=== PATIENT | female | born 1980 | race Caucasian/White ===

== ENCOUNTER → 2022-11-29 08:00 | Outpatient (BNV) | payer MEDICARE, MEDICAID, SELFPAY | PROVIDERS: Visit Provider Psychiatry & Neurology Psychiatry | DX: F90.9 Attention-deficit hyperactivity disorder, unspecified type (principal); F43.10 Post-traumatic stress disorder, unspecified | CPT/HCPCS: 99202; 99213; 99214 ==

== ENCOUNTER 2022-12-05 10:31 | Emergency (ER) | payer MEDICARE, MEDICAID, SELFPAY ==
--- NOTE | ~2022-12-05 | CT_ITS ---
EXAMINATION: CT CERVICAL SPINE WITHOUT CONTRAST CLINICAL INFORMATION: Status post fall with neck pain. COMPARISON: None available. TECHNIQUE: Multiple axial images of the cervical spine were obtained without the administration of intravenous contrast. Coronal and sagittal reformatted images were obtained. This CT examination was performed using dose optimization techniques as appropriate, variously including the following: *Automated exposure control *Adjustment of mA and/or kV according to patient size (this includes techniques or standardized protocols for targeted exams where dose is matched to indication/reason for exam; i.e. extremities or head) *Use of iterative reconstruction technique DLP: 304.32 mGy-cm FINDINGS: There is straightening of the normal cervical lordosis with normal spinal alignment. The vertebral bodies are intact. The odontoid process is intact with mild articulation degenerative changes. The neural foramina are patent. The facet joints are unremarkable. The spinous and transverse processes are intact. The cervical soft tissues are unremarkable. There is no lymphadenopathy. The visualized thyroid gland and lung apices are unremarkable. CT/CT cervical spine wo IV con IMPRESSION: Straightening of the normal cervical lordosis may be secondary to positioning and/or muscle spasm. No acute abnormality.
--- NOTE | ~2022-12-05 | CT_ITS ---
EXAMINATION: CT HEAD WITHOUT CONTRAST CLINICAL INFORMATION: Head strike and headache, rule out intracranial abnormality. COMPARISON: None available. TECHNIQUE: Contiguous axial imaging was performed from the skull base to vertex without intravenous administration of contrast. Coronal and sagittal reformatted images were obtained. This CT examination was performed using dose optimization techniques as appropriate, variously including the following: *Automated exposure control *Adjustment of mA and/or kV according to patient size (this includes techniques or standardized protocols for targeted exams where dose is matched to indication/reason for exam; i.e. extremities or head) *Use of iterative reconstruction technique DLP: 873 mGy-cm FINDINGS: The cortical sulci are normal. The lateral ventricles are symmetrical. The third and fourth ventricles are in their normal midline position. The basilar and prepontine cisterns are unremarkable. There is no acute intra or extracerebral abnormality. There is no mass effect or midline shift. Sections through the bony calvarium are unremarkable. The paranasal sinuses are clear. The bony orbits and orbital contents are unremarkable. CT/CT head/brain wo IV con IMPRESSION: No acute intracranial pathology.
[2022-12-05 10:52] VITALS: BP 134/65; PULSE 63; RESP 16; TEMP 36.7; O2SAT 98; BMI 25.3
--- NOTE | 2022-12-05 14:15 | ED_ITS ---
HPI - Head Injury General Chief complaint: Head Injury Stated complaint: head inj headache Time Seen by Provider: 12/05/22 14:02 Source: patient and RN notes reviewed Mode of arrival: ambulatory Limitations: no limitations History of Present Illness HPI Narrative: This is a 42-year-old female, with a past medical history of PTSD, ADHD, and asthma, presenting to the emergency department with complaints of ongoing headache x5 days. Patient states that she has a history of PTSD and states that as a child she uses a hit her head against a wall. She states that she had 1 of these episodes were she hit her head multiple times against a wall. She has is unsure whether not she lost consciousness at that time. She states that 2 days later she accidentally hit the top of her head and forehead on a metal shelf. No loss of consciousness. She states that she has had intermittent headaches, dizziness, lightheadedness, and nausea. She states that she took naproxen for her symptoms yesterday which did not provide her with any relief. She has a history of migraines but states that her headache is different, describing it as a tight band around her head. She also endorses some neck pain. She denies any fevers, chills, vision changes, numbness tingling or weakness, chest pain, shortness of breath, abdominal pain, vomiting or diarrhea. She is not on blood thinners. No other complaints or concerns at this time. Complaint: head injury Onset (ago): day(s) Place: home Loss of Consciousness: unsure Location of injury: frontal Quality: aching Radiation: neck Other Injuries: none Associated symptoms: neck pain Related Data Home Medications Medication Instructions Recorded Confirmed cholecalciferol (vitamin D3) 25 25 mcg PO DAILY 11/28/22 11/28/22 mcg (1,000 unit) capsule (Vitamin D3) cyanocobalamin (vitamin B-12) 1,000 mcg PO DAILY 11/28/22 11/28/22 1,000 mcg tablet (Vitamin B-12) estradiol 1 mg tablet 1 mg PO DAILY 11/28/22 11/28/22 levocetirizine 5 mg tablet (Xyzal) 5 mg PO DAILY 11/28/22 11/28/22 naproxen sodium 220 mg capsule 220 mg PO DAILY PRN Pain 11/28/22 11/28/22 (Aleve) omeprazole 20 mg capsule,delayed 20 mg PO BID 11/28/22 11/28/22 release oxybutynin chloride 5 mg 5 mg PO DAILY 11/28/22 11/28/22 tablet,extended release 24 hr rizatriptan 10 mg tablet 10 mg PO DAILY PRN Migraine 11/28/22 11/28/22 Headache Previous Rx's Medication Instructions Recorded alprazolam 0.5 mg tablet (Xanax) 0.5 mg PO DAILY PRN anxiety 30 11/29/22 days #10 tabs dextroamphetamine-amphetamine 10 10 mg PO BID ADHD 15 days #30 tabs 11/29/22 mg tablet (Adderall) lorazepam 0.5 mg tablet (Ativan) 0.5 mg PO DAILY PRN anxiety 20 11/29/22 days #10 tabs citalopram 20 mg tablet (Celexa) 20 mg PO DAILY #30 tabs 12/02/22 Allergies Allergy/AdvReac Type Severity Reaction Status Date / Time Penicillins [PENICILLINS] Allergy Unknown UNKNOWN Unverified 01/09/20 18:16 bupropion [From Wellbutrin] AdvReac Suicidality Verified 11/28/22 15:00 citalopram AdvReac Suicidality Verified 11/28/22 15:00 Review of Systems Review of Systems: Yes all other systems are reviewed and are negative Constitutional: Constitutional: Reports as per [facility] Past Medical History Medical History Arthritis Asthma Bradycardia Chronic fatigue Endometriosis Fibromyalgia GERD (gastroesophageal reflux disease) History of bronchitis History of pneumonia History of stomach ulcers IBS (irritable bowel syndrome) Migraines Polyarthralgia Positive CATERINA (antinuclear antibody) Spinal stenosis Vitamin D deficiency Surgical History History of carpal tunnel surgery History of hysterectomy Social History Social History Household Members: Significant Other, Children and Other Household Members Other:: Zeke Maki boyfriend, 4 children, and boyfriend's mother. Patient Tobacco Use Status: Former Tobacco user Advance Directives: No Advance Directives Information Provided: No Physical Exam Vital Signs: Vital Signs: Last Vital Signs Temp 98.1 F 12/05/22 10:52 Pulse 63 12/05/22 10:52 Resp 16 12/05/22 10:52 BP 134/65 12/05/22 10:52 Pulse Ox 98 12/05/22 10:52 O2 Del Method Room Air 12/05/22 10:52 BMI result Body Mass Index 25.3 Const: General: cooperative, comfortable and no acute distress Orientation/consciousness: patient oriented x3 Limitations: no limitations HEENT: Other: Mid forehead with superficial abrasion with mild edema and tenderness palpation. No step-off or crepitus. No hemotympanum Head: Yes normal to inspection, Yes normocephalic, No Palomares's sign, No palpable skull fracture, No scalp lesion and No scalp tenderness Ears: hearing grossly normal bilaterally and TM's normal bilaterally General nose e xam: Normal external nose present Face and sinus: Yes normal facial exam Mouth: Normal oral and palatal mucosa present, oropharynx normal and moist mucous membranes Throat: Yes posterior oropharynx normal Eyes: General: appearance normal, both eyes and all related structures Eyelids: Yes eyelids normal Conjunctivae: conjunctivae normal Sclerae: sclerae normal Pupils: Equal, round and reactive pupils present EOM: EOMs intact bilaterally and No Nystagmus present Neck: Neck: Yes normal visual inspection, Yes full ROM and Yes no lymphadenopathy Lymphatic: no lymphadenopathy noted Chest: Chest palpation & inspection: normal inspection of the chest Resp: Effort & Inspection: normal respiratory effort and able to speak in comp lete sentences Auscultation: clear to auscultation bilaterally, no crackles, no rales, no rhonchi and no wheezes Cardio: Rate: regular rate Rhythm: regular rhythm Heart sounds: S1 normal heart sound present and S2 normal heart sound present GI: Inspection: Yes normal to inspection Skin: General skin exam: no rashes or lesions noted Trauma: no lacerations or abrasions Wounds: no wounds Neuro: General: patient oriented x3 and moves all extremities Cranial nerves: Yes CN's II-XII intact bilaterally, Yes Equal, round and reactive pupils present, Yes Nystagmus not present, Yes Normal facial strength present, Yes Midline tongue present, Yes Ability to bilaterally elevate shoulders present and No Nystagmus present Romberg Test: Negative Extrem: General: Yes normal to inspection Right upper extremity: normal to inspection Left upper extremity: normal to inspection Right lower extremity: normal to inspection Left lower extremity: normal to inspection Course Reevaluation(s) Reevaluation #1: CT head and neck are unremarkable. Symptoms consistent with closed head injury, discharged with closed head injury discharge instructions. Patient is neurologically intact with no focal findings. Given strict return precautions. Patient understands and agrees with plan. Patient stable for discharge. Medical Decision Making Medical Decision Making MDM Narrative: 42-year-old female presenting to the emergency department for evaluation of head injury x5 days. She states that 5 days ago she struck her head multiple times against a wall after having a PTSD attack , unsure of LOC. She then struck the front of her head on a metal shelf. She has had this persistent headaches, dizziness and nausea since these incidences. She is not on blood thinners. Patient is neurologically intact. Vital signs stable. Given head trauma this is does, and 3 days ago and patient's mom blood thinners without any neurologic findings, ICH is highly unlikely. Given persistent headaches that are atypical of her migraines, will obtain head and neck CT. Patient has mild tenderness palpation along the cervical midline spine tenderness which exacerbates headache even further. Plan: CT head and neck Differential Diagnosis Differential Diagnoses: The differential diagnosis associated with the presentation includes ICH-unlikely, migraine headache, tension headache, ocular migraine Admission/Observation Consideration of admission/observation: Escalation of care including admission/observation considered Patient would have been admitted to the hospital had her work up had any findings where hospital admission was appropriate and her clinical presentation warranted hospital admission. Lab Data MDM Lab Attestation statement: I reviewed the patient's lab results. Radiology Impression Discussion of test interpretation with radiology: I have reviewed the radiologist's reading. Radiologist Impression: EXAMINATION: CT HEAD WITHOUT CONTRAST CLINICAL INFORMATION: Head strike and headache, rule out intracranial abnormality.? COMPARISON: None available. TECHNIQUE: Contiguous axial imaging was performed from the skull base to vertex without intravenous administration of contrast. Coronal and sagittal reformatted images were obtained. This CT examination was performed using dose optimization techniques as appropriate, variously including the following: *Automated exposure control *Adjustment of mA and/or kV according to patient size (this includes techniques or standardized protocols for targeted exams where dose is matched to indication/reason for exam; i.e. extremities or head) *Use of iterative reconstruction technique DLP: 873 mGy-cm FINDINGS: The cortical sulci are normal. The lateral ventricles are symmetrical. The third and fourth ventricles are in their normal midline position. The basilar and prepontine cisterns are unremarkable. There is no acute intra or extracerebral abnormality. There is no mass effect or midline shift. Sections through the bony calvarium are unremarkable. The paranasal sinuses are clear. The bony orbits and orbital contents are unremarkable. ? CT/CT head/brain wo IV con IMPRESSION: No acute intracranial pathology. Dictated By: Jose Naranjo MD EXAMINATION: CT CERVICAL SPINE WITHOUT CONTRAST CLINICAL INFORMATION: Status post fall with neck pain.? COMPARISON: None available. TECHNIQUE: Multiple axial images of the cervical spine were obtained without the administration of intravenous contrast. Coronal and sagittal reformatted images were obtained.? This CT examination was performed using dose optimization techniques as appropriate, variously including the following: *Automated exposure control *Adjustment of mA and/or kV according to patient size (this includes techniques or standardized protocols for targeted exams where dose is matched to indication/reason for exam; i.e. extremities or head) *Use of iterative reconstruction technique DLP: 304.32 mGy-cm FINDINGS: There is straightening of the normal cervical lordosis with normal spinal alignment. The vertebral bodies are intact. The odontoid process is intact with mild? articulation degenerative changes. The neural foramina are patent. The facet joints are unremarkable. The spinous and transverse processes are intact. The cervical soft tissues are unremarkable. There is no lymphadenopathy. The visualized thyroid gland and lung apices are unremarkable. CT/CT cervical spine wo IV con IMPRESSION: Straightening of the normal cervical lordosis may be secondary to positioning and/or muscle spasm. No acute abnormality. ? Dictated By: Jose Naranjo MD Discharge Plan Discharge Clinical Impression: Closed head injury Patient Disposition: Home, Self-Care Additional Instructions: Your head and neck scan were unremarkable today. Please drink plenty of fluids and get plenty of rest Avoid prolonged screentime as this can worsen your symptoms. Take Tylenol or ibuprofen as needed for pain. If any new or worsening symptoms occur please return for re-evaluation. Prescriptions: No Action rizatriptan 10 mg Tablet 10 mg PO DAILY PRN (Reason: Migraine Headache) Patient Comments: Patient stated she has not started. New medication. Was taking Sumatriptan without effect. Rx Instructions: do not exceed 3 doses per 24 hrs estradiol 1 mg tablet 1 mg PO DAILY oxybutynin chloride 5 mg tablet extended release 24hr 5 mg PO DAILY omeprazole 20 mg capsule,delayed release(DR/EC) 20 mg PO BID cholecalciferol (vitamin D3) [Vitamin D3] 25 mcg (1,000 unit) Capsule 25 mcg PO DAILY cyanocobalamin (vitamin B-12) [Vitamin B-12] 1,000 mcg Tablet 1,000 mcg PO DAILY levocetirizine [Xyzal] 5 mg Tablet 5 mg PO DAILY naproxen sodium [Aleve] 220 mg Capsule 220 mg PO DAILY PRN (Reason: Pain) dextroamphetamine-amphetamine [Adderall] 10 mg tablet 10 mg PO BID 15 Days Qty: 30 0RF Rx Instructions: administer doses at least 4-6 hours apart; Partial Fill upon patient request. lorazepam [Ativan] 0.5 mg tablet 0.5 mg PO DAILY PRN (Reason: anxiety) 20 Days Qty: 10 0RF alprazolam [Xanax] 0.5 mg tablet 0.5 mg PO DAILY PRN (Reason: anxiety) 30 Days Qty: 10 0RF citalopram [Celexa] 20 mg tablet 20 mg PO DAILY Qty: 30 0RF Interventions: ED Discharge Assessment Last Done: 12/05/22 16:34 Discharge Date/Time: 12/05/22 16:34
== END 2022-12-05 16:34 | disposition home or self-care (01) ==
PROVIDERS: Emergency Provider Emergency Medicine; PCP Pediatrics
DX: S09.90XA Unspecified injury of head, initial encounter (principal); W22.8XXA Striking against or struck by other objects, initial encounter; M54.2 Cervicalgia; Y93.9 Activity, unspecified; Y92.9 Unspecified place or not applicable; Y99.9 Unspecified external cause status
CPT/HCPCS: 70450; 72125; 99282; 99284

== ENCOUNTER 2022-12-14 09:15 | Outpatient (RCR) | payer MEDICARE, MEDICAID, SELFPAY ==
[2022-11-28 13:29] VITALS: BP 105/72; PULSE 58; TEMP 36.6
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
--- NOTE | 2022-11-29 14:13 | PC.NURSE ---
Carlos stated [facility] notified her there is an issue with her prescription. I called [facility] to f/u and was told they are not able to fill Lorazepam prescription as the medication is on back order d/t a national shortage and are unsure when it will be available. Dr Westfall is aware.
--- NOTE | 2022-12-01 17:18 | HO.PHP ---
Clients case was reviewed and opened today in treatment team.
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
--- NOTE | 2022-12-02 12:50 | HO.PHP ---
[facility] staff met with Karen, in which we contacted [facility] about [place] treatment. The treatment center informed us that they only prescribe medication for Sprav[place] and don't do other psychiatric medication. Karen did not move forward with placing a referral since they did not do additional medication. Once we disconnected, [facility] staff looked up other information around [place] centers and med management. [facility] staff reached out to [facility] in [place] and Karen spoke with a staff member who placed a referral for her. Karen explored how long before she is seen. The individual from [facility] said she does not have a timeline she can provide but someone will call with the appointment as soon as one becomes available. Karen was receptive.
--- NOTE | 2022-12-06 09:59 | PC.NURSE ---
Karen left the first group crying. She came into my office to talk. She stated she had a difficult morning this morning as her boyfriend started work and she had to manage her mother in law and get herself ready for program this morning. She also stated she received a call from [facility] about an appointment at 3:15 today and she is unable to make the appointment. She stated she does not trust [facility] as in the past she left them a message regarding an appointment and they did not call her back. She stated the system is broken. She stated she did call [facility] back and left a message wanting to reschedule the appointment as she has a DBT appointment today at 4:00. She stated [facility] has not called her back. She understands that it is difficult to get a new prescriber appointment. She also stated she is on a wait list with another prescriber in [place]. She was working with [facility] staff Marlen. [facility] staff Brdig[place] and Mayela are aware.
--- NOTE | 2022-12-08 11:12 | HO.PHPPROGNO ---
Subjective Subjective Date of Service: 12/08/22 Reason For Visit: PTSD,MDD Healthcare Proxy: No Guardianship: No Medical Problems Affecting Mental Status: Yes (chronic pain, fibromyalgia, bruxism) Interim History: Margie requested to see me today in a follow-up. She has been taking the stimulant and it has been extremely helpful with her ADHD symptoms but is causing worsening of her jaw clenching. She is able to complete tasks. Mind racing has decreased considerably and noticeably. Pt says her anxiety and agitation have increased with restarting the celexa.pt states her outpatient prescriber willnot prescribe meds fro her until she gets records from us. I assured her that we would send her outpatient provider a treatment summary and a list of any med changes. pt would like to try ritalin to see if it causes less jaw clenching. she wants to stop the celexa. we discussed other options and she requests to try gabapentin which she thinks could help with her anxiety but also the fibromyalgia pain; we discussed risk vs benefits, potential improvements with and limits of gabapentin. I also suggested se try buspirone for bruxism. Medication Compliance: Yes Side effects from medications: Yes Attending Groups: Yes Review of Systems Acute medical concerns: Yes Medical Review of Systems: unchanged Review of Systems Review of Systems Yes all other systems are reviewed and are negative Reports mouth pain (jaw pain from clenching) Musculoskeletal: Reports as per HPI and Reports myalgias Mental Status Exam Mental Status Exam Narrative: In today's visit she is alert, oriented and pleasant. Normal speech. Good eye contact. Appropriate affect. No signs of psychosis. No SI/HI. Cognitively intact. Judgment is intact abnormalities of gait or musculoskeletal difficulties Assessment & Plan Assessment & Plan (1) ADHD: Status: Acute Code(s): F90.9 - Attention-deficit hyperactivity disorder, unspecified type (2) PTSD (post-traumatic stress disorder): Status: Acute Code(s): F43.10 - Post-traumatic stress disorder, unspecified Plan Continue partial hospital program. D/C Adderall D/C Celexa 10-20 mg start gabapentin 100mg TId start ritalin 10 mg BId take 3.5 hours apart start buspar 5 mg BID on evening of 12/13 for jaw clenching Patient educated on: diagnosis, medication risk/benefits and therapeutic strategies Informed Consent: understands and further education needed Reason for contiued partial hosp. stay Substantial Risk for: harm to self, inability to function and rapid decompensation Certification I certify that partial hospital treatment is medically necessary due to the symptoms and problems resulting from the patient's mental illness and the failure to treat the patient at the partial hospital level of care would likely result in the patient requiring inpatient psychiatric care which could not be prevented at a less intensive level of care. Total time managing care of this patient today _30___ minutes. Discharge Plan Discharge Attending provider: Montrell Aponte Medications: New lorazepam [Ativan] 0.5 mg tablet 0.5 mg PO DAILY PRN (Reason: anxiety) 20 Days Qty: 10 0RF alprazolam [Xanax] 0.5 mg tablet 0.5 mg PO DAILY PRN (Reason: anxiety) 30 Days Qty: 10 0RF methylphenidate HCl [Ritalin] 10 mg tablet 10 mg PO BID Qty: 20 0RF Rx Instructions: Partial Fill upon patient request. gabapentin 100 mg capsule 100 mg PO TID Qty: 30 0RF buspirone 5 mg tablet 5 mg PO BID Qty: 10 0RF Rx Instructions: start on 8 PM No Action rizatriptan 10 mg Tablet 10 mg PO DAILY PRN (Reason: Migraine Headache) Patient Comments: Patient stated she has not started. New medication. Was taking Sumatriptan without effect. Rx Instructions: do not exceed 3 doses per 24 hrs estradiol 1 mg tablet 1 mg PO DAILY oxybutynin chloride 5 mg tablet extended release 24hr 5 mg PO DAILY omeprazole 20 mg capsule,delayed release(DR/EC) 20 mg PO BID cholecalciferol (vitamin D3) [Vitamin D3] 25 mcg (1,000 unit) Capsule 25 mcg PO DAILY cyanocobalamin (vitamin B-12) [Vitamin B-12] 1,000 mcg Tablet 1,000 mcg PO DAILY levocetirizine [Xyzal] 5 mg Tablet 5 mg PO DAILY naproxen sodium [Aleve] 220 mg Capsule 220 mg PO DAILY PRN (Reason: Pain) Stand Alone Forms: Patient Portal Discharge page
--- NOTE | 2022-12-12 10:09 | HO.PHP ---
[facility] staff received a message regarding setting up an appointment for psychiatry through [facility] and was asked to contact back to set up an appointment date and time. [facility] staff contacted [facility] and left a message. The number contacted was [phone] ext [phone]. [facility] staff is awaiting a returned phone call.
--- NOTE | 2022-12-13 09:30 | HO.PHP ---
[facility] staff contacted [facility] at [phone] ext [phone] and left a VM regarding scheduling an appointment time for Karen to meet with a med provider. [facility] staff is awaiting a call back.
--- NOTE | 2022-12-13 15:00 | HO.PHP ---
[facility] staff received a VM from [facility] asking for the clinician to contact back. [facility] staff returned the phone call but was presented with the VM box. [facility] staff left a VM and informed them that they can call back with the appointment date and time and leave the information in the VM if we are unable to connect. [facility] staff is awaiting the appointment date and time.
--- NOTE | 2022-12-14 12:57 | P.PNPSP_ITS ---
Subjective Subjective Date of Service: 12/14/22 Reason For Visit: PTSD,MDD Healthcare Proxy: No Guardianship: No Medical Problems Affecting Mental Status: No Interim History: Met with patient. Chart reviewed. Patient be discharged today. Overall reports partial hospital program has been helpful with significant improvement in sleep, less depressed and motivation much better. Still remains depressed however. No SI. No psychosis. No agitation. Feels that the Ritalin has been helpful at 10 mg 3 times per day. Reports that does tend to wear off pretty quickly. We discussed utilizing Ritalin long-acting 20 mg in the morning and 10 mg immediate release in the afternoon. Patient will follow up with community- based prescriber regarding other medications. We will send prescriptions for 14 days for Ritalin long-acting and immediate release so same is on discharge paperwork and feels as per [place] [facility], so community provider but have relevant information to continue same. Cardiovascular Disease Specialist unable to electronically prescribed stimulant medications through [facility], and therefore paper prescriptions printed to [facility] as this provider is working remotely. Medication Compliance: Yes Side effects from medications: No Attending Groups: Yes Review of Systems Acute medical concerns: No Review of Systems Review of Systems Yes all other systems are reviewed and are negative Mental Status Exam Mental Status Exam Narrative: Pleasant. Engaged. Fairly presented. Organized. Affect is restricted. No SI. No HI. No agitation. No psychosis. Insight judgment fair Assessment & Plan Assessment & Plan (1) ADHD: Status: Acute Code(s): F90.9 - Attention-deficit hyperactivity disorder, unspecified type Assessment and Plan: overall has been appropriate from a mood perspective. Some benefit from stimulants regimen being started for ADHD and motivation. Feels that the Ritalin has been helpful at 10 mg 3 times per day. Reports that does tend to wear off pretty quickly. We discussed utilizing Ritalin long-acting 20 mg in the morning and 10 mg immediate release in the afternoon. Patient will follow up with community-based prescriber regarding other medications. We will send prescriptions for 14 days for Ritalin long-acting and immediate release so same is on discharge paperwork and feels as per [place] [facility], so community provider but have relevant information to continue same. Cardiovascular Disease Specialist unable to electronically prescribed stimulant medications through [facility], and therefore paper prescriptions printed to [facility] as this provider is working remotely. (2) PTSD (post-traumatic stress disorder): Status: Acute Code(s): F43.10 - Post-traumatic stress disorder, unspecified Patient educated on: medication risk/benefits and therapeutic strategies Informed Consent: understands Reason for contiued partial hosp. stay Substantial Risk for: stable for discharge Certification I certify that partial hospital treatment is medically necessary due to the symptoms and problems resulting from the patient's mental illness and the failure to treat the patient at the partial hospital level of care would likely result in the patient requiring inpatient psychiatric care which could not be prevented at a less intensive level of care. Total time managing care of this patient today __30__ minutes. Discharge Plan Discharge Attending provider: Montrell Aponte Medications: New lorazepam [Ativan] 0.5 mg tablet 0.5 mg PO DAILY PRN (Reason: anxiety) 20 Days Qty: 10 0RF alprazolam [Xanax] 0.5 mg tablet 0.5 mg PO DAILY PRN (Reason: anxiety) 30 Days Qty: 10 0RF gabapentin 100 mg capsule 100 mg PO TID Qty: 30 0RF buspirone 5 mg tablet 5 mg PO BID Qty: 10 0RF Rx Instructions: start on 8/22 PM methylphenidate HCl [Ritalin LA] 20 mg capsule,ER biphasic 50-50 20 mg PO DAILY 14 Days Qty: 14 0RF Rx Instructions: Partial Fill upon patient request. Changed methylphenidate HCl [Ritalin] 10 mg tablet 10 mg PO DAILY@1500 Qty: 14 0RF Rx Instructions: Partial Fill upon patient request. No Action rizatriptan 10 mg Tablet 10 mg PO DAILY PRN (Reason: Migraine Headache) Patient Comments: Patient stated she has not started. New medication. Was taking Sumatriptan without effect. Rx Instructions: do not exceed 3 doses per 24 hrs estradiol 1 mg tablet 1 mg PO DAILY oxybutynin chloride 5 mg tablet extended release 24hr 5 mg PO DAILY omeprazole 20 mg capsule,delayed release(DR/EC) 20 mg PO BID cholecalciferol (vitamin D3) [Vitamin D3] 25 mcg (1,000 unit) Capsule 25 mcg PO DAILY cyanocobalamin (vitamin B-12) [Vitamin B-12] 1,000 mcg Tablet 1,000 mcg PO DAILY levocetirizine [Xyzal] 5 mg Tablet 5 mg PO DAILY naproxen sodium [Aleve] 220 mg Capsule 220 mg PO DAILY PRN (Reason: Pain) Stand Alone Forms: Patient Portal Discharge page Patient Education: Depression (DC) Telehealth Telehealth Location of provider rendering services: other ( [place]) Location of patient: other ( [facility]) Patient Identification confirmed using: Name, : Yes Telehealth method: video Patient verbally consented to treatment: Yes Minutes spent on Phone/Video with Pt.: 15
--- NOTE | 2022-12-20 12:28 | PC.NURSE ---
At discharge from the program Karen saw Dr Johns requesting Methylphenidate refill however the refill did not go through to [facility]. Methylphenidate refill was filled by Carmen Cuellar APRN on 12/15/22. Karen had an appointment with [facility] prescriber the next day and told staff she did not need any other medication refills. Karen called today and stated [facility] did not fill her meds including Gabapentin and Buspirone as it was not on her D/C paperwork. I let her know we sent a copy of her discharge paperwork with faxed confirmation of receipt and both Gapapentin and Buspirone were listed on the paperwork. Karen then stated they did not get the paperwork. I told Karen I would fax the paperwork again. She also stated she was having issues with Methylphenedate. I spoke to Carmen Cuellar APRN and reviewed Methylphenedate electronic orders written by Carmen Cuellar APRN on 12/15/22 were for Methlyphenidate ER 20 mg Biphase 50-50 daily in the am and Methylphenidate 10 mg daily to take at 3pm. D/cd duplicate orders from Dr Johns. Pharmacy Requesting PA for 20 mg tab, 10 mg is waiting for p/u. Carmen Cuellar APRN aware. Will fax again discharge paperwork to [facility].
== END 2022-12-14 23:59 | disposition home or self-care (01) ==
LOC: HO.PHPA 09:15
PROVIDERS: Visit Provider Psychiatry & Neurology Psychiatry
DX: F43.10 Post-traumatic stress disorder, unspecified (principal); F41.0 Panic disorder [episodic paroxysmal anxiety]; F90.9 Attention-deficit hyperactivity disorder, unspecified type
CPT/HCPCS: 90791; 90853